=== PATIENT | male | born 1925 | race Caucasian/White ===

== ENCOUNTER 2017-03-24 08:37 | Day surgery (SDC) | payer MEDICARE, OTHER ==
[~2017-03-24] VITALS: Ht 160 cm; Wt 94.7 kg
[2017-03-24] VITALS (8 sets, daily range): BP systolic 122–139; BP diastolic 63–87
[~2017-03-24 08:37] MED LIST: ACET-2144 PO; ALB0.5UD IH; CHOL100046 PO; FLO0.4C PO; HYDR-3965 PO; IRON-32 PO; MAGN800O PO; SENN1TAB89 PO; TRIA1CAP2 PO; mag oxide PO; vitamin b12 PO
[2017-03-24] MEDS ORDERED: acetaminophen 325mg tablet PO ONE (09:00)
[2017-03-24] MEDS ORDERED: diphenhydrAMINE 25mg capsule PO ONE (09:05)
[2017-03-24] MEDS ORDERED: DULO-31 PO (10:35)
[2017-03-24] MEDS ORDERED: FLUT100D2 INH (10:40)
[2017-03-24] MEDS ORDERED: PREG50CA PO (10:41)
[2017-03-24] MEDS ORDERED: MAGN500C16 PO (10:45)
== END 2017-03-24 13:30 | disposition home or self-care (01) ==
LOC: SSTAY O 08:37
PROVIDERS: ATTEND Family Medicine
DX: D64.9 Anemia, unspecified (principal); J44.9 Chronic obstructive pulmonary disease, unspecified; M19.90 Unspecified osteoarthritis, unspecified site; I12.9 Hypertensive chronic kidney disease with stage 1 through stage 4 chronic kidney disease, or unspecified chronic kidney disease; N18.3 Chronic kidney disease, stage 3 (moderate); Z79.899 Other long term (current) drug therapy
CPT/HCPCS: 36415; 36430; 86885; 86900; 86901; 86920; J7030; P9016; Q0163

== ENCOUNTER 2017-06-20 08:39 | Day surgery (SDC) | payer MEDICARE, OTHER ==
[2017-06-20] VITALS (11 sets, daily range): BP systolic 112–148; BP diastolic 58–88
[~2017-06-20 08:39] MED LIST changes: +DULO-31 PO; +FLUT100D2 INH; +MAGN500C16 PO; +PREG50CA PO; -mag oxide PO
[2017-06-20] MEDS ORDERED: diphenhydrAMINE 25mg capsule PO ONE (09:20)
[2017-06-20] MEDS ORDERED: acetaminophen 325mg tablet PO ONE (09:20)
== END 2017-06-20 15:10 | disposition home or self-care (01) ==
LOC: SSTAY O 08:39
PROVIDERS: ATTEND Family Medicine
DX: I12.9 Hypertensive chronic kidney disease with stage 1 through stage 4 chronic kidney disease, or unspecified chronic kidney disease (principal); N18.3 Chronic kidney disease, stage 3 (moderate); N40.0 Benign prostatic hyperplasia without lower urinary tract symptoms; J44.9 Chronic obstructive pulmonary disease, unspecified; M19.90 Unspecified osteoarthritis, unspecified site; Z87.891 Personal history of nicotine dependence; Z88.8 Allergy status to other drugs, medicaments and biological substances; Z79.82 Long term (current) use of aspirin; Z79.891 Long term (current) use of opiate analgesic; Z79.899 Other long term (current) drug therapy; Z98.890 Other specified postprocedural states
CPT/HCPCS: 36415; 36430; 86885; 86900; 86901; 86920; J7030; P9016; Q0163; A6449

== ENCOUNTER 2017-08-29 11:43 | Day surgery (SDC) | payer MEDICARE, OTHER ==
[~2017-08-29] VITALS: Ht 162.6 cm; Wt 95.3 kg
[2017-08-29] VITALS (8 sets, daily range): BP systolic 101–138; BP diastolic 50–69
[~2017-08-29 11:43] MED LIST changes: +SENN-166 PO; -SENN1TAB89 PO
[2017-08-29] MEDS ORDERED: diphenhydrAMINE 25mg capsule PO ONE (12:35)
[2017-08-29] MEDS ORDERED: acetaminophen 325mg tablet PO ONE (12:35)
[2017-08-29] MEDS ORDERED: DONE10TA6 PO (13:43)
== END 2017-08-29 16:05 ==
LOC: SSTAY O 11:43
PROVIDERS: ATTEND Family Medicine
DX: K92.2 Gastrointestinal hemorrhage, unspecified (principal); D50.9 Iron deficiency anemia, unspecified; M19.90 Unspecified osteoarthritis, unspecified site; J44.9 Chronic obstructive pulmonary disease, unspecified; E11.22 Type 2 diabetes mellitus with diabetic chronic kidney disease; I12.9 Hypertensive chronic kidney disease with stage 1 through stage 4 chronic kidney disease, or unspecified chronic kidney disease; N18.3 Chronic kidney disease, stage 3 (moderate); N40.0 Benign prostatic hyperplasia without lower urinary tract symptoms; Z79.891 Long term (current) use of opiate analgesic; Z79.82 Long term (current) use of aspirin; Z79.899 Other long term (current) drug therapy; Z98.890 Other specified postprocedural states; Z88.8 Allergy status to other drugs, medicaments and biological substances
CPT/HCPCS: 36415; 36430; 86885; 86900; 86901; 86920; J7030; P9016; Q0163